=== PATIENT | female | born 1950 | race Caucasian/White ===

== ENCOUNTER 2020-02-06 16:47 | Emergency (ER) | payer MEDICARE, SELFPAY ==
[2020-02-06 16:56] VITALS: BP 140/95; PULSE 92; RESP 18; TEMP 36.8; O2SAT 100
--- NOTE | 2020-02-06 18:27 | ED.FEMALEGU ---
HPI - Female Genitourinary General Chief complaint: Urogenital-Female Stated complaint: URINARY RETENTION Time Seen by Provider: 02/06/20 17:53 Source: patient Mode of arrival: ambulatory Limitations: no limitations History of Present Illness HPI Narrative: This is a 69 year old female that presents to the ER for urinary retention. Reports she has not been able to urinate since this morning. Reports only a little came out this morning. She has tried since and has been unable to get any urine out. Reports she sees Dr. Melissa for interstitial cystitis. Denies fever, abdominal pain, vomiting, or dysuria. Related Data Home Medications Medication Instructions Recorded Confirmed pantoprazole 40 mg tablet,delayed 40 mg PO QAM 06/01/19 06/01/19 release rivaroxaban 20 mg tablet 20 mg PO DAILY 06/01/19 06/01/19 sotalol 80 mg tablet 80 mg PO DAILY 06/01/19 06/01/19 Allergies Allergy/AdvReac Type Severity Reaction Status Date / Time steroids AdvReac Intermediate Other Uncoded 02/06/20 17:06 Review of Systems Review of Systems: Narrative: CONSTITUTIONAL: Denies fever GASTROINTESTINAL: Denies abdominal pain, nausea, vomiting GENITOURINARY: Denies dysuria or hematuria. All systems reviewed & are unremarkable except as noted in HPI and below PMFSH Past Medical History Medical History (Updated 02/06/20 @ 20:48 by Parris Bhatia PA-C) Accelerated hypertension Anxiety and depression Gastroesophageal reflux disease History of atrial fibrillation Hypothyroidism (acquired) Interstitial cystitis Surgical History Surgical History History of knee surgery Social History Social History Smoking status: Never smoker Alcohol intake: never Gender identity (if verbalized by the patient): Female Exam Narrative: Exam Narrative: GENERAL: Well-appearing, well-nourished, and in no acute distress. HEAD: Normocephalic, atraumatic. EYES: EOMI. CHEST: Clear to auscultation. No respiratory distress. No wheezes rales or rhonchi HEART: Regular rate and rhythm. No murmur heard. Normal peripheral pulses. ABDOMEN: Soft, nontender, nondistended, normal active bowel sounds. EXTREMITIES: Normal range of motion. No edema. SKIN: Warm, dry, no rash. NEURO: No focal deficits. Alert and oriented x3. PSYCH: Normal mood and affect Course Vital Signs Vital signs: Vital Signs Temperature 98.3 F 02/06/20 16:56 Pulse Rate 92 02/06/20 16:56 Respiratory Rate 18 02/06/20 16:56 Blood Pressure 140/95 H 02/06/20 16:56 Pulse Oximetry 100 02/06/20 16:56 Temperature 98.3 F 02/06/20 16:56 Pulse Rate 92 02/06/20 16:56 Respiratory Rate 18 02/06/20 16:56 Blood Pressure 140/95 H 02/06/20 16:56 Pulse Oximetry 100 02/06/20 16:56 MDM - Female Genitourinary MDM Narrative Medical decision making narrative: Patient presents the emergency department for urinary retention. Reports she went to the restroom this morning, but was unable to the rest of the day. Reports she felt like she was hydrating. Denied any dysuria or hematuria. Patient is afebrile and nontoxic-appearing. CBC is without leukocytosis. Metabolic panel with possible very mild dehydration. Patient given a liter of IV fluids in the ED. UA is without evidence of infection. Bladder scan with only 60 to 70 mL's. After patient was hydrated she was able to urinate on her own. Patient is stable and felt appropriate for further outpatient evaluation. She was instructed to drink plenty of water at home. She is to follow-up with her urologist as needed. She was given warnings to return to the ER Lab Data Attestation: I reviewed the patient's lab results. Result diagrams: 02/06/20 18:48 02/06/20 18:48 Labs: Lab Results 02/06/20 02/06/20 02/06/20 Range/Units 18:48 18:48 18:48 WBC 8.8 (4.5-10.0) K/mm3 RBC 4.92
[2020-02-06 18:57] LABS: Basophils Percent Auto 0.3 % (0.2-1.2); Eosinophils Absolute Auto 0.3 K/mm3 (0-0.3); Eosinophils Percent Auto 3.5 % (0-4.4); Hematocrit 42.8 % (37.0-47.0); Hemoglobin 14.4 g/dL (12.0-15.0); Immature Granulocyte Absolute 0.03 K/mm3 (0.00-0.031); Immature Granulocyte Percent A 0.3 % (0-0.5); Lymphocytes Absolute Auto 3.02 K/mm3 (0.9-3.2); Lymphocytes Percent Auto 34.2 % (18.3-44.2); Mean Corpuscular HGB Conc 33.6 g/dl (32-36); Mean Corpuscular Hemoglobin 29.3 pg (26-34); Mean Platelet Volume 10.2 fl (7.4-10.4); Monocytes Absolute Auto 0.6 K/mm3 (0.1-0.6); Monocytes Percent Auto 6.3 % (2.6-8.5); Neutrophils Absolute Auto 4.9 K/mm3 (1.3-6.7); Neutrophils Percent Auto 55.4 % (45.5-73.1); Platelet Count Result 253 k/mm3 (150-375); Red Blood Count 4.92 M/mm3 (4.2-5.4); Red Cell Distribution Width 13.5 % (11.5-14.5); White Blood Count 8.8 K/mm3 (4.5-10.0)
[2020-02-06 19:04] LABS: Add Urine Microscopic? YES; Appearance Urine Cloudy (Clear); Bilirubin Urine Negative (Negative); Blood Urine 1+ (Negative); Color Urine Yellow (Yellow); Glucose Urine UA Negative (Negative); Hyaline Casts Urine 15-19 /lpf; Ketones Urine Negative (Negative); Leukocyte Esterase Ur Negative LEU/UL (Negative); Mucus Urine Heavy /lpf; Nitrate Urine Negative (Negative); Protein Urine 1+ mg/dL (Negative); RBC Urine 0-2 /hpf (0-2); Specific Grav Ur 1.019 (1.001-1.035); Squamous Epithelial Cell Urine Few /hpf (Few); Urobilinogen Urine Negative mg/dL (<2.0); WBC Urine 0-3 /hpf
[2020-02-06 19:09] LABS: Anion Gap 8 mmol/L (8-16); Blood Urea Nitrogen 18 mg/dL (7-17); Calcium 8.8 mg/dL (8.4-10.2); Carbon Dioxide 28 mmol/L (22-30); Chloride 100 mmol/L (98-107); Estimated Glomerular Filt Rate > 60; Glucose 98 mg/dL (65-105); Potassium 3.5 mmol/L (3.4-5.0); Sodium 136 mmol/L (137-145)
[2020-02-06 19:22] VITALS: BP 131/73; PULSE 91; RESP 16; O2SAT 99
[2020-02-06] MEDS: SODIUM CHLORIDE 0.9% IV 1,000 ML 999 ML IV CONT (19:32)
[2020-02-06 21:02] VITALS: BP 145/84; PULSE 79; RESP 16; TEMP 36.6; O2SAT 100
== END 2020-02-06 21:03 | disposition home or self-care (01) ==
PROVIDERS: Physician Assistant; Emergency Provider Emergency Medicine; PCP Internal Medicine
DX: E86.0 Dehydration (principal); I10 Essential (primary) hypertension; F41.9 Anxiety disorder, unspecified; F32.9 Major depressive disorder, single episode, unspecified; K21.9 Gastro-esophageal reflux disease without esophagitis; I48.91 Unspecified atrial fibrillation; Z79.01 Long term (current) use of anticoagulants; E03.9 Hypothyroidism, unspecified
CPT/HCPCS: 36415; 51701; 80048; 81001; 85025; 96360; 99283; J7030

== ENCOUNTER 2020-04-11 10:02 | Outpatient (CLI) | payer MEDICARE, SELFPAY ==
--- NOTE | ~2020-04-11 | MM_ITS ---
EXAMINATION: MM screening [facility] BI w alfredo HISTORY: Screening mammogram TECHNIQUE: Craniocaudal and mediolateral oblique 3-D tomosynthesis images were obtained and synthetic 2-D images were generated. CAD analysis was submitted and interpreted. COMPARISON: 04/01/2019, 03/30/2018, 03/23/2017 BREAST PARENCHYMAL COMPOSITION: There are scattered areas of fibroglandular density. FINDINGS: There is no evidence of suspicious mass, calcification, or architectural distortion to sugg est malignancy in either breast. There has been no suspicious interval change. IMPRESSION: 1. No mammographic evidence of malignancy. 2. Recommend routine screening mammography in one year. BI-RADS Category 1: Negative Reviewed, dictated and finalized at location A.
== END 2020-04-11 10:03 | disposition home or self-care (01) ==
LOC: ANHIMG 10:04
PROVIDERS: PCP Internal Medicine; Visit Provider Internal Medicine
DX: Z12.31 Encounter for screening mammogram for malignant neoplasm of breast (principal)
CPT/HCPCS: 77063; 77067

== ENCOUNTER → 2021-01-08 08:17 | Outpatient (CLI) | payer MEDICARE, SELFPAY ==
[2021-01-08 20:36] LABS: SARS-CoV-2 RNA PCR Negative
== END ==
PROVIDERS: PCP Internal Medicine; Visit Provider Internal Medicine
DX: Z20.822 Contact with and (suspected) exposure to COVID-19 (principal); R09.89 Other specified symptoms and signs involving the circulatory and respiratory systems
CPT/HCPCS: C9803; U0003; U0005

== ENCOUNTER 2021-02-26 10:01 | Emergency (ER) | payer MEDICARE, SELFPAY ==
--- NOTE | ~2021-02-26 | XR_ITS ---
EXAMINATION: [id number] EXAM DATE: 02/26/2021 10:24 INDICATION: Right-sided neck pain for 3 days. Painful to lift head. TECHNIQUE: Cervical spine frontal, lateral, lateral swimmers, and open-mouth odontoid projections. There is no prior study for comparison. FINDINGS: Straightening of normal cervical lordosis could be positional or spasm. Mild to moderate d isc disease C6-7, mild at C5-6. The vertebral body and disc heights are otherwise well maintained. Mi ld to moderate cervical arthropathy. There are no acute fractures identified. The odontoid process is intact. The lateral masses of C1 line up with C2. Prevertebral soft tissue and pre-dens space are w ithin normal limits. Lung apices unremarkable. IMPRESSION: 1. Mild to moderate cervical spondylosis. 2. Cervical straightening. Reviewed, dictated and finalized at location B.
[2021-02-26 10:06] VITALS: BP 159/89; PULSE 58; RESP 16; TEMP 36.4; O2SAT 99
--- NOTE | 2021-02-26 10:06 | ED.NECK ---
HPI - Neck Pain/Injury General Chief Complaint: Neck Pain/Injury Stated Complaint: neck pain Time Seen by Provider: 02/26/21 10:06 Source: patient, family and RN notes reviewed History of Present Illness HPI Narrative: Patient is a 70-year-old female who presents the urgent care with complaints of left-sided neck pain. Patient states that started Thursday without any known injury, fall or trauma. Denies any history of neck or back pain. Denies of any headache. Patient states that she is used Aspercreme and Tylenol. No other acute complaints. No acute distress noted. Patient aware of the plan of care. Some parts of this dictation were generated by voice recognition software and may contain typographical and/or grammatical inaccuracies. Related Data Home Medications Medication Instructions Recorded Confirmed pantoprazole 40 mg tablet,delayed 40 mg PO QAM 06/01/19 12/21/20 release rivaroxaban 20 mg tablet 20 mg PO DAILY 06/01/19 12/21/20 sotalol 80 mg tablet 80 mg PO DAILY 06/01/19 12/21/20 Allergies Allergy/AdvReac Type Severity Reaction Status Date / Time steroids AdvReac Intermediate Other Uncoded 12/21/20 11:16 Review of Systems Review of Systems: CONSTITUTIONAL: Denies fever, chills, or sweats. EYES: Denies visual changes, redness, or discharge. ENT: Denies rhinorrhea, congestion, sore throat, or otalgia. Reports of left-sided neck pain CARDIOVASCULAR: Denies chest pain, palpitations, or edema. RESPIRATORY: Denies cough or dyspnea. GASTROINTESTINAL: Denies abdominal pain, nausea, vomiting, or diarrhea. GENITOURINARY: Denies dysuria or hematuria. SKIN: Denies rash or itching. MUSCULOSKELETAL: Denies back pain, joint pain, or myalgia. NEUROLOGIC: Denies headache, numbness, or weakness. All other systems reviewed are negative, except as documented in HPI. [facility] Past Medical History Medical History Accelerated hypertension Anxiety and depression Gastroesophageal reflux disease History of atrial fibrillation Hypothyroidism (acquired) Interstitial cystitis Postmenopausal Surgical History Surgical History History of knee surgery Family History Family History Mother Family history of diabetes mellitus in first degree relative Father Family history of coronary artery disease Other Family history of malignant neoplasm of breast in first degree relative Family history of malignant neoplasm of male breast Social History Social History (Updated 12/21/20 @ 11:18 by Amaris Chung MA) Smoking status: Never smoker Alcohol intake: never Substance use: never Gender identity (if verbalized by the patient): Female Comments At the time of my signature, I reviewed and agree with the nursing past medical, surgical, social, and family history. There is no relevant family history pertinent to the patient complaint. Exam Narrative: GENERAL: This is a well-nourished, well-developed patient, in no apparent distress. HEAD: normocephalic, atraumatic. EYES: PERRL. Sclera clear/white. Vision is grossly intact. EARS: External ears normal NOSE: External nose normal with no obvious nasal discharge, nares without redness, no rhinorrhea. THROAT: Mucous membranes moist NECK: Range of motion limited due to pain especially flexion to the right, no cervical tenderness. Difficulty with head/chin left CARDIOVASCULAR: irregular, murmur (history of Afib and mitral valve prolapse) RESPIRATORY: Clear to auscultation. Breath sounds equal bilaterally. No wheezes, rales, or rhonchi. SKIN: warm, intact with no suspicious lesions or rash, good texture and turgor. NEURO: awake, alert, and oriented to person, place and time. There were no obvious focal neurologic abnormalities. EXTREMITIES: No clubbing, cyanosis, or edema. Course Vital Signs Vital signs:
[2021-02-26 10:10] VITALS: BP 159/89; PULSE 58; RESP 16; TEMP 36.4; O2SAT 99
== END 2021-02-26 10:57 | disposition home or self-care (01) ==
PROVIDERS: Emergency Provider Nurse Practitioner Family; PCP Internal Medicine
DX: S16.1XXA Strain of muscle, fascia and tendon at neck level, initial encounter (principal); I10 Essential (primary) hypertension; F32.9 Major depressive disorder, single episode, unspecified; F41.9 Anxiety disorder, unspecified; X58.XXXA Exposure to other specified factors, initial encounter
CPT/HCPCS: 72040; 99213; G0463

== ENCOUNTER 2021-04-12 14:21 | Outpatient (CLI) | payer MEDICARE, SELFPAY ==
--- NOTE | ~2021-04-12 | MM_ITS ---
EXAMINATION: MM screening [facility] BI w alfredo HISTORY: Screening mammogram TECHNIQUE: Craniocaudal and mediolateral oblique 3-D tomosynthesis images were obtained and synthetic 2-D images were generated. CAD analysis was submitted and interpreted. COMPARISON: 04/11/2020, 08/02/2018, 03/30/2018 BREAST PARENCHYMAL COMPOSITION: There are scattered areas of fibroglandular density. FINDINGS: There is no evidence of suspicious mass, calcification, or architectural distortion to sugg est malignancy in either breast. There has been no suspicious interval change. IMPRESSION: 1. No mammographic evidence of malignancy. 2. Recommend routine screening mammography in one year. BI-RADS Category 1: Negative Reviewed, dictated and finalized at location A.
== END 2021-04-12 14:22 | disposition home or self-care (01) ==
LOC: ANHIMG 14:24
PROVIDERS: PCP Internal Medicine; Visit Provider Internal Medicine
DX: Z12.31 Encounter for screening mammogram for malignant neoplasm of breast (principal)
CPT/HCPCS: 77063; 77067

== ENCOUNTER 2022-05-09 12:35 | Outpatient (CLI) | payer MEDICARE, SELFPAY ==
--- NOTE | ~2022-05-09 | MM_ITS ---
EXAMINATION: MM screening [facility] BI w alfredo HISTORY: Screening mammogram TECHNIQUE: Craniocaudal and mediolateral oblique 3-D tomosynthesis images were obtained and synthetic 2-D images were generated. CAD analysis was submitted and interpreted. COMPARISON: 04/12/2021, 04/11/2020, 04/01/2019 bilateral screening mammogram examinations BREAST PARENCHYMAL COMPOSITION: There are scattered areas of fibroglandular density. FINDINGS: There is no evidence of suspicious mass, calcification, or architectural distortion to sugg est malignancy in either breast. There has been no suspicious interval change. IMPRESSION: 1. No mammographic evidence of malignancy. 2. Recommend routine screening mammography in one year. BI-RADS Category 1: Negative Reviewed, dictated and finalized at location A. [employer]
== END 2022-05-09 12:36 | disposition home or self-care (01) ==
PROVIDERS: PCP Internal Medicine; Visit Provider Internal Medicine
DX: Z12.31 Encounter for screening mammogram for malignant neoplasm of breast (principal)
CPT/HCPCS: 77063; 77067

== ENCOUNTER 2023-09-01 09:21 | Outpatient (CLI) | payer MEDICARE, SELFPAY ==
--- NOTE | ~2023-09-01 | DEXA_ITS ---
Bone Density Report Name: FREDERICK HANEY Age: 73 Sex: Female Ethnicity: White Date of : 1950 Indication: postmenopausal; screening for osteoporosis; hysterectomy; Referring Provider: ZHANE CRISTINA Study: Bone densitometry was performed. Exam Date: September 01, 2023 Accession number: [id number] Bone Density: Region BMD T-score Z-score Classification AP Spine(L1-L4) 0.931 -1.1 1.2 Osteopenia Femoral Neck (Left) 0.617 -2.1 -0.2 Osteopenia Total Hip (Left) 0.792 -1.2 0.4 Osteopenia Femoral Neck (Right) 0.630 -2.0 -0.1 Osteopenia Total Hip (Right) 0.757 -1.5 0.1 Osteopenia Total Hip Mean 0.774 -1.4 0.3 Osteopenia World Health Organization criteria for BMD impression classify patients as: Normal (T-score at or above -1.0), Osteopenia (T-score between -1.0 and -2.5), or Osteoporosis (T-score at or below -2.5). 10-year Fracture Risk(1): Major Osteoporotic Fracture 11% Hip Fracture 2.4% Reported Risk Factors: [place] (), Neck BMD=0.617, BMI=36.5 (1) FRAX(R) Version 3.08. Fracture probability calculated for an untreated patient. Fracture probability may be lower if the patient has received treatment. Clinical Information Provided by Patient: Has used the following medications: Vitamin D Has the following medical conditions: Hysterectomy Patient maximum height was 63 Menopause Age: 29 Onset of menses at age 15 Number of children 0 Impression: The patient has low bone mass, based on the Left Femoral Neck T-score. The patient has an estimated ten-year risk of hip fracture of 2.4% and an estimated ten-year risk of major fracture of 11%, based on the WHO FRAX algorithm. Discussion: BONE DENSITY IS LOW AT ONE OR MORE SKELETAL SITES. This patient's lowest T-score is low at one or more skeletal sites. It meets the World Health Organization's (WHO) criteria for ?low bone mass? (T-score between -1.0 and -2.5). The patient's 10-year risk of fracture as calculated by FRAX is less than the threshold where pharmacological therapy is recommended by the National Osteoporosis Foundation (NOF). However, all treatment decisions require clinical judgment and consideration of individual patient factors, including patient preferences, comorbidities, previous drug use, risk factors not captured in the FRAX model (e.g., frailty, falls, vitamin D deficiency, increased bone turnover, interval significant decline in bone density) and possible under or overestimation of fracture risk by FRAX. The patient should follow a healthful lifestyle (good nutrition with adequate calcium and vitamin D, and appropriate weight-bearing exercise). Follow-Up: Consider repeating this study in 2 to 3 years to reassess this patient's status, or sooner if there is some new clinical indication. Reported by: Sabiha
--- NOTE | ~2023-09-01 | MM_ITS ---
EXAMINATION: MM screening [facility] BI w alfredo HISTORY: Screening TECHNIQUE: Craniocaudal and mediolateral oblique 3-D tomosynthesis images were obtained and synthetic 2-D images were generated. CAD analysis was submitted and interpreted. COMPARISON: Comparison to multiple prior studies sequentially, with oldest reviewed study dated 02/2017. BREAST PARENCHYMAL COMPOSITION: Not dense: There are scattered areas of fibroglandular density. FINDINGS: There is no evidence of suspicious mass, calcification, or architectural distortion to sugg est malignancy in either breast. There has been no suspicious interval change. IMPRESSION: 1. No mammographic evidence of malignancy. 2. Recommend routine screening mammography in one year. BI-RADS Category 1: Negative Reviewed, dictated and finalized at location A.
== END 2023-09-01 09:22 | disposition home or self-care (01) ==
PROVIDERS: PCP Physician Assistant; Visit Provider Physician Assistant
DX: Z12.31 Encounter for screening mammogram for malignant neoplasm of breast (principal); M85.89 Other specified disorders of bone density and structure, multiple sites; Z78.0 Asymptomatic menopausal state
CPT/HCPCS: 77063; 77067; 77080

== ENCOUNTER 2023-10-02 14:13 | Outpatient (CLI) | payer MEDICARE, SELFPAY ==
--- NOTE | ~2023-10-02 | XR_ITS ---
EXAMINATION: XR hand RT min 3V, XR wrist RT min 3V DATE: 10/02/2023 14:34 INDICATION: Right hand and wrist pain TECHNIQUE: 1. Posteroanterior, ulnar deviation, oblique, and lateral views of the right wrist were obtained. 2. Dorsal palmar, oblique and lateral views of the right hand were obtained. COMPARISON: None. FINDINGS: Alignment of the right hand and wrist is normal. No fracture identified. Polyarticular osteoarthriti s, moderate severity at the triscaphe, first carpometacarpal, first metacarpophalangeal and first int erphalangeal and second-fourth distal interphalangeal joints and mild at the distal radioulnar, wrist and many of the remaining metacarpophalangeal and interphalangeal joints. No cortical erosions or pe riosteal reaction. No focal soft tissue swelling. IMPRESSION: 1. Typical distribution of mild to moderate polyarticular osteoarthritis at the right hand and wrist most prominent at the medial aspect of the carpus and distal interphalangeal joints. Reviewed, dictated and finalized at location A. IMPRESSION: 1. Typical distribution of mild to moderate polyarticular osteoarthritis at the right hand and wrist most prominent at the medial aspect of the carpus and dis siddhartha interphalangeal joints.
== END 2023-10-02 14:14 | disposition home or self-care (01) ==
LOC: ANHIMG 14:16
PROVIDERS: PCP Internal Medicine; Visit Provider Internal Medicine
DX: M19.041 Primary osteoarthritis, right hand (principal); M19.031 Primary osteoarthritis, right wrist
CPT/HCPCS: 73110; 73130

== ENCOUNTER 2023-11-24 16:29 | Emergency (ER) | payer MEDICARE, SELFPAY ==
--- NOTE | 2023-11-24 16:32 | ED.GENADULT ---
HPI - General Adult General Chief complaint: Back Pain/Injury Stated complaint: R BUTTOCK PAIN Time Seen by Provider: 11/24/23 16:42 Source: patient, RN notes reviewed and old records reviewed Mode of arrival: ambulatory Limitations: no limitations History of Present Illness HPI narrative: 73-year-old female presents to the [facility] with complaints of right buttock pain Patient states it started yesterday morning. Pain worse when she lifts her leg. No injury. No treatment prior to arrival Patient has no rashes, erythema or ecchymosis to the area No midline tenderness No loss retention of bowel or bladder. Denies abdominal pain. No midline tenderness. Walking with a steady gait Treatments prior to arrival: none Related Data Home Medications Medication Instructions Recorded Confirmed rivaroxaban 20 mg tablet (Xarelto) 20 mg PO DAILY 06/01/19 11/24/23 sotalol 120 mg tablet 120 mg PO Q12H 04/21/23 11/24/23 cholecalciferol (vitamin D3) 10 10 mcg PO DAILY 11/24/23 11/24/23 mcg (400 unit) capsule (Vitamin D3) Allergies Allergy/AdvReac Type Severity Reaction Status Date / Time steroids AdvReac Intermediate Other Uncoded 11/24/23 16:49 Review of Systems Review of Systems: All systems reviewed & are unremarkable except as noted in HPI and below Constitutional: Constitutional: Reports no additional constitutional complaints Eyes: Eyes: Reports no additional eye complaints ENT: Reports system reviewed and no additional complaints, except as documented Cardiovascular: Cardiovascular: Reports no additional cardiovascular complaints, Denies chest pain and Denies dyspnea Respiratory: Respiratory: Reports no additional respiratory complaints, Denies chest congestion, Denies cough and Denies dyspnea Gastrointestinal: Gastrointestinal: Reports no additional gastrointestinal complaints, Denies abdominal pain, Denies nausea and Denies vomiting Musculoskeletal: Musculoskeletal: Reports as per HPI Integumentary/Breasts: Skin/Breast: Reports system reviewed and no additional complaints, except as docu Neurologic: Reports system reviewed and no additional complaints, except as documented Psychiatric: Psychiatric: Reports no additional psychiatric complaints Allergic/Immunologic: Allergic/Immunologic: Reports no additional allergic/immunologic complaints [facility] Past Medical History Medical History Accelerated hypertension Anxiety and depression Gastroesophageal reflux disease History of atrial fibrillation Hypothyroidism (acquired) Interstitial cystitis Osteoarthritis Postmenopausal Surgical History Surgical History History of knee surgery Family History Family History Mother Family history of diabetes mellitus in first degree relative Father Family history of coronary artery disease Other Family history of malignant neoplasm of breast in first degree relative Family history of malignant neoplasm of male breast Social History Social History Smoking status: Never smoker Alcohol intake: never Substance use: never Lack of Transportation: No Lack of Food: Never True Current Housing: I Have Housing Concerned About Future Housing: No Difficulty Paying Gas/Electric Bills: No Difficulty Paying for Meds: No Currently Unemployed: No Education: Associate Degree Difficulty w/ Childcare or Family Care: No Gender identity (if verbalized by the patient): Female Comments At the time of my signature, I reviewed and agree with the nursing past medical, surgical, social, and family history. There is no relevant family history pertinent to the patient complaint. Exam Const: General: cooperative, healthy appearing, no acute distress, well developed, alert, uncomfortable and well
[2023-11-24 16:40] VITALS: BP 152/74; PULSE 60; RESP 16; TEMP 36.6; O2SAT 98
== END 2023-11-24 16:57 | disposition home or self-care (01) ==
PROVIDERS: Emergency Provider Nurse Practitioner; PCP Internal Medicine
DX: M54.31 Sciatica, right side (principal); I10 Essential (primary) hypertension; K21.9 Gastro-esophageal reflux disease without esophagitis; I48.91 Unspecified atrial fibrillation; E03.9 Hypothyroidism, unspecified; M19.90 Unspecified osteoarthritis, unspecified site; Z79.01 Long term (current) use of anticoagulants; F41.9 Anxiety disorder, unspecified; F32.A Depression, unspecified
CPT/HCPCS: 99213; G0463

== ENCOUNTER 2024-05-19 12:20 | Emergency (ER) | payer MEDICARE, SELFPAY ==
--- NOTE | ~2024-05-19 | CT_ITS ---
EXAMINATION: CT brain wo con DATE: 05/19/2024 13:41 INDICATION: Dizziness. Nausea and vomiting. TECHNIQUE: Computed tomography (CT) of the head was performed without intravenous contrast. The mA wa s adjusted according to patient size. Iterative reconstruction technique was employed. The dose-lengt h product was 605.33 mGy-cm. COMPARISON: Head CT 06/11/2009 FINDINGS: There are scattered areas of low attenuation in the cerebral white matter, which is within normal limits for the patient's age. There is no intracranial hemorrhage, acute infarction, or abnorm al intracranial mass lesion. The ventricles are normal in size. There is mild mucosal thickening in t he paranasal sinuses. 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 The mastoid air cells are normal. IMPRESSION: 1. Normal aging brain. Reviewed, dictated and finalized at location A. TESTER IMPRESSION: 1. Normal aging brain.
[2024-05-19 12:42] VITALS: BP 143/95; PULSE 75; RESP 16; TEMP 36.4; O2SAT 97
--- NOTE | 2024-05-19 13:02 | ED.DIZZY ---
HPI - Dizziness General Chief Complaint: Dizziness <DIANELYS Conn Last Filed: 05/19/24 13:09> Stated Complaint: nausea/vomiting/dizziness <DIANELYS Conn Last Filed: 05/19/24 13:09> Time Seen by Provider: 05/19/24 13:02 <DIANELYS Conn Last Filed: 05/19/24 13:09> Focused HPI: Patient is a 73 y/o female who presents to the ED with c/o dizziness. Patient was at the eye doctor this morning getting visual testing done prior to her scheduled cataract surgery today. Reports shortly after having her eyes dilated, she began having dizziness/lightheadedness, nausea, diaphoresis, near syncope. EMS was then called to bring patient here. patient is still feeling very dizzy, lightheaded, worse with movement and opening eyes. Also still feeling nauseous. Reported having some dry heaving. Denies headache, focal weakness or numbness, vision changes. GENERAL: Mildly uncomfortable/ill-appearing, obese with BMI of 36.2, and in no acute distress. HEAD: Normocephalic, atraumatic. EYES: Pupils are dilated but still reactive. extraocular movements are intact, but difficult to evaluate for nystagmus d/t patient refusing to keep eyes open. CHEST: Clear to auscultation. ?No respiratory distress. HEART: Regular rate and rhythm.? NEURO: ?Alert and oriented x3. no appreciable focal deficits. Patient screened in triage and initial orders placed.? ?Additional care and disposition to be based upon?diagnostic testing and treatment. <DIANELYS Conn Last Filed: 05/19/24 13:09> Source: patient <DIANELYS Conn Last Filed: 05/19/24 13:09> Mode of arrival: EMS <DIANELYS Conn Last Filed: 05/19/24 13:09> Limitations: no limitations <DIANELYS Conn Last Filed: 05/19/24 13:09> History of Present Illness HPI Narrative: I agree with the HPI as documented in the medical screening exam. The patient also states she underwent repeated exposure to bright light that she believes triggered the symptoms. <Kiko Keene MD - Last Filed: 05/20/24 00:43> Related Data Home Medications: Home Medications Medication Instructions Recorded Confirmed rivaroxaban 20 mg tablet (Xarelto) 20 mg PO DAILY 06/01/19 04/26/24 sotalol 120 mg tablet 120 mg PO Q12H 04/21/23 04/26/24 cholecalciferol (vitamin D3) 10 10 mcg PO DAILY 11/24/23 04/26/24 mcg (400 unit) capsule (Vitamin D3) <Simona Jane PA-C - Last Filed: 05/19/24 13:09> Allergies/Adverse Reactions: Allergies Allergy/AdvReac Type Severity Reaction Status Date / Time steroids AdvReac Intermediate Other Uncoded 04/26/24 08:51 <Simona Jane PA-C - Last Filed: 05/19/24 13:09> Review of Systems Review of Systems: All systems reviewed & are unremarkable except as noted in HPI and below <Kiko Keene MD - Last Filed: 05/20/24 00:43> PMFSH Past Medical History Medical History: Medical History Accelerated hypertension Anxiety and depression Gastroesophageal reflux disease History of atrial fibrillation Hypothyroidism (acquired) Interstitial cystitis Osteoarthritis Postmenopausal <Simona Jane PA-C - Last Filed: 05/19/24 13:09> Surgical History Surgical History: Surgical History History of knee surgery <Simona Jane PA-C - Last Filed: 05/19/24 13:09> Family History Family History: Family History Mother Family history of diabetes mellitus in first degree relative Father Family history of coronary artery disease Other Family history of malignant neoplasm of breast in first degree relative Family history of malignant neoplasm of male breast <Simona Jane PA-C - Last Filed: 05/19/24 13:09> Social History Social History: Social History Smoking status: Never smoker Alcohol intake: never Substance use: never Lack of Transportation: No Lack of Food: Never True Current Housing: I Have Housing Concerned About Future Housing: No Difficulty Paying Gas/Electric Bills: No Difficulty Paying for Meds: No Currently Unemployed: No Education: Associate Degree Difficulty w/ Childcare or Family Care: No Gender identity (if verbalized by the patient): Female <Simona Jane PA-C - Last Filed: 05/19/24 13:09> Exam Narrative: GENERAL: Well-developed, well-nourished, and in no acute distress. HEAD: Normocephalic, atraumatic. EYES: PERRLA and EOMI. ENT: Nares clear, no rhinorrhea or epistaxis. Mucous membranes moist. Oropharynx without tonsillar hypertrophy exudate or other lesions. Bilateral TMs pearly roman nonbulging CHEST: Clear to auscultation. No respiratory distress. No wheezes rales or rhonchi HEART: Regular rate and rhythm. No murmur heard. Normal peripheral pulses. ABDOMEN: Soft, nontender, nondistended, normal active bowel sounds. EXTREMITIES: Normal range of motion. No edema. SKIN: Warm, dry, no rash. NEURO: Alert and oriented x3. strength 5/5 in all extremities, sensation intact bilaterally, no noted ataxia, no noted nystagmus, cranial nerves 2-12 intact PSYCH: Normal mood and affect. <Kiko Keene MD - Last Filed: 05/20/24 00:43> Course Course Emergency Course: 19:30 - CBC unremarkable. Chemistries demonstrate mild hypokalemia with potassium of 3.1. CT of the head not concerning for acute intracranial process. The patient's initial EKG demonstrated T-wave inversions without prior EKGs for comparison. On my evaluation, the patient states she feels great and wishes to be discharged. I discussed the risks versus benefits of admission for observation given an episode of near-syncope. The patient voiced understanding and gratitude though politely declines. She has recently followed up with her weather strip installer with no significant findings or change in plan. She accepted a repeat EKG that appears unchanged compared to initial presentation. Will discharge with recommendation for primary care and cardiology follow-up. I discussed the findings and recommendations with The patient. Discussed return and emergency precautions including signs/symptoms of ACS and respiratory distress. The patient voiced understanding and agreement with the plan. All questions answered to her satisfaction. <Kiko Keene MD - Last Filed: 05/20/24 00:43> Vital Signs Vital signs: Vital Signs Temperature 97.6 F 05/19/24 12:42 Pulse Rate 75 05/19/24 12:42 Respiratory Rate 16 05/19/24 12:42 Blood Pressure 143/95 H 05/19/24 12:42 Pulse Oximetry 97 05/19/24 12:42 Oxygen Delivery Room Air 05/19/24 12:42 Temperature 97.6 F 05/19/24 12:42 Pulse Rate 91 05/19/24 19:16 Respiratory Rate 14 05/19/24 19:16 Blood Pressure 146/95 H 05/19/24 19:00 Pulse Oximetry 99 05/19/24 19:01 Oxygen Delivery Room Air 05/19/24 12:42 <Simona Jane PA-C - Last Filed: 05/19/24 13:09> Vital Signs Temperature 97.6 F 05/19/24 12:42 Pulse Rate 75 05/19/24 12:42 Respiratory Rate 16 05/19/24 12:42 Blood Pressure 143/95 H 05/19/24 12:42 Pulse Oximetry 97 05/19/24 12:42 Oxygen Delivery Room Air 05/19/24 12:42 Temperature 97.6 F 05/19/24 12:42 Pulse Rate 91 05/19/24 19:16 Respiratory Rate 14 05/19/24 19:16 Blood Pressure 146/95 H 05/19/24 19:00 Pulse Oximetry 99 05/19/24 19:01 Oxygen Delivery Room Air 05/19/24 12:42 <Kiko Keene MD - Last Filed: 05/20/24 00:43> MDM - Dizziness MDM Narrative Medical decision making narrative: MSE by ROE in triage. <Simona Jane PA-C - Last Filed: 05/19/24 13:09> MSE by ROE in triage. plan: Labs, EKG, imaging, reassess <Kiko Keene MD - Last Filed: 05/20/24 00:43> Differential Diagnosis Differential diagnosis: Likely other ( anemia, hypoglycemia, metabolic abnormality, arrhythmia, intracranial mass, intracranial hemorrhage, dehydration, other) <Kiko Keene MD - Last Filed: 05/20/24 00:43> Lab Data Result diagrams: 05/19/24 13:30 05/19/24 13:30 <Simona Jane PA-C - Last Filed: 05/19/24 13:09> Labs: Lab Results 05/19/24 05/19/24 Range/Units 13:30 13:33 WBC 8.6 (4.5-10.0) K/mm3 RBC 5.02 (4.2-5.4) M/mm3 Hgb 14.8 (12.0-15.0) g/dL Hct 44.7 (37.0-47.0) % MCV 89.0 (80-100) fl MCH 29.5 (26-34) pg MCHC 33.1 (32-36) g/dl RDW 13.6 (11.5-14.5) % Plt Count 216 (150-375) k/mm3 MPV 9.7 (7.4-10.4) fl Immature Gran % (Auto) 0.5 (0-0.5) % Neut % (Auto) 71.9 (45.5-73.1) % Lymph % (Auto) 20.2 (18.3-44.2) % [place] % (Auto) 5.1 (2.6-8.5) % Eos % (Auto) 2.1 (0-4.4) % Baso % (Auto) 0.2 (0.2-1.2) % Lymph # (Auto) 1.73 (0.9-3.2) K/mm3 [place] # (Auto) 0.4 (0.1-0.6) K/mm3 Eos # (Auto) 0.2 (0-0.3) K/mm3 Baso # (Auto) 0.0 (0.0-0.1) K/mm3 Abs Immat Gran (auto) 0.04 H (0.00-0.031) K/mm3 Absolute Neuts (auto) 6.2 (1.3-6.7) K/mm3 Absolute Nucleated RBC 0.000 (0.0-0.012) K/mm3 Nucleated RBC % 0.0 (0.0-0.2) % Sodium 139 (137-145) mmol/L Potassium 3.1 L (3.4-5.0) mmol/L Chloride 104 (98-107) mmol/L Carbon Dioxide 30 (22-30) mmol/L Anion Gap 5 (4-12) mmol/L BUN 9 D (7-17) mg/dL Creatinine 0.60 L (0.7-1.0) mg/dL Estim Creat Clear Calc 78 ml/min Estimated GFR > 60 (59 - ) Glucose 126 H (65-110) mg/dL POC Capillary Glucose 124 H (65-105) mg/dl Calcium 8.6 (8.4-10.2) mg/dL Magnesium 2.1 (1.6-2.3) mg/dL Total Bilirubin 0.9 (0.2-1.3) mg/dL AST 27 (14-36) U/L ALT 18 (6-35) U/L Alkaline Phosphatase 105 (38-126) U/L Total Protein 7.0 (6.3-8.2) g/dL Albumin 4.3 (3.5-5.1) g/dL <Simona Jane PA-C - Last Filed: 05/19/24 13:09> Lab Results 05/19/24 05/19/24 Range/Units 13:30 13:33 WBC 8.6 (4.5-10.0) K/mm3 RBC 5.02 (4.2-5.4) M/mm3 Hgb 14.8 (12.0-15.0) g/dL Hct 44.7 (37.0-47.0) % MCV 89.0 (80-100) fl MCH 29.5 (26-34) pg MCHC 33.1 (32-36) g/dl RDW 13.6 (11.5-14.5) % Plt Count 216 (150-375) k/mm3 MPV 9.7 (7.4-10.4) fl Immature Gran % (Auto) 0.5 (0-0.5) % Neut % (Auto) 71.9 (45.5-73.1) % Lymph % (Auto) 20.2 (18.3-44.2) % [place] % (Auto) 5.1 (2.6-8.5) % Eos % (Auto) 2.1 (0-4.4) % Baso % (Auto) 0.2 (0.2-1.2) % Lymph # (Auto) 1.73 (0.9-3.2) K/mm3 [place] # (Auto) 0.4 (0.1-0.6) K/mm3 Eos # (Auto) 0.2 (0-0.3) K/mm3 Baso # (Auto) 0.0 (0.0-0.1) K/mm3 Abs Immat Gran (auto) 0.04 H (0.00-0.031) K/mm3 Absolute Neuts (auto) 6.2 (1.3-6.7) K/mm3 Absolute Nucleated RBC 0.000 (0.0-0.012) K/mm3 Nucleated RBC % 0.0 (0.0-0.2) % Sodium 139 (137-145) mmol/L Potassium 3.1 L (3.4-5.0) mmol/L Chloride 104 (98-107) mmol/L Carbon Dioxide 30 (22-30) mmol/L Anion Gap 5 (4-12) mmol/L BUN 9 D (7-17) mg/dL Creatinine 0.60 L (0.7-1.0) mg/dL Estim Creat Clear Calc 78 ml/min Estimated GFR > 60 (59 - ) Glucose 126 H (65-110) mg/dL POC Capillary Glucose 124 H (65-105) mg/dl Calcium 8.6 (8.4-10.2) mg/dL Magnesium 2.1 (1.6-2.3) mg/dL Total Bilirubin 0.9 (0.2-1.3) mg/dL AST 27 (14-36) U/L ALT 18 (6-35) U/L Alkaline Phosphatase 105 (38-126) U/L Total Protein 7.0 (6.3-8.2) g/dL Albumin 4.3 (3.5-5.1) g/dL <Kiko Keene MD - Last Filed: 05/20/24 00:43> ECG Data EKG #1: Attestation: I personally reviewed and interpreted this ECG as follows: <Kiko Keene MD - Last Filed: 05/20/24 00:43> ECG completion date: 05/19/24 <Kiko Keene MD - Last Filed: 05/20/24 00:43> ECG completion time: 13:31 <Kiko Keene MD - Last Filed: 05/20/24 00:43> Prior ECG tracings: available for review <Kiko Keene MD - Last Filed: 05/20/24 00:43> Interpretation: AFib, rate 85, normal axis, no ST segment elevations concerning for ischemia, T-wave inversions in lead lead 1, lead 2, V4, V5 and V6. Otherwise normal intervals with QTC of 465. The patient's last available EKG is from 2009 that demonstrated sinus rhythm. <Kiko Keene MD - Last Filed: 05/20/24 00:43> EKG #2: Attestation: I personally reviewed and interpreted this ECG as follows: <Kiko Keene MD - Last Filed: 05/20/24 00:43> ECG completion date: 05/19/24 <Kiko Keene MD - Last Filed: 05/20/24 00:43> ECG completion time: 19:23 <Kiko Keene MD - Last Filed: 05/20/24 00:43> Prior ECG tracings: available for review <Kiko Keene MD - Last Filed: 05/20/24 00:43> Interpretation: AFib, rate 89, normal axis, no ST segment elevations concerning for ischemia, T-wave inversions in lead 1, lead 2, V4, V5 and V6, otherwise normal intervals with QTC of 468. Compared to EKG done at 13:31 today, there are no significant changes. <Kiko Keene MD - Last Filed: 05/20/24 00:43> Discharge Plan Discharge Clinical Impression: Near syncope, A-fib <Simona Jane PA-C - Last Filed: 05/19/24 13:09> Patient Disposition: Home, Self-Care <Simona Jane PA-C - Last Filed: 05/19/24 13:09> Condition: Stable <Simona Jane PA-C - Last Filed: 05/19/24 13:09> Instructions: Antibiotic Form, Lightheadedness (ED) <Simona Jane PA-C - Last Filed: 05/19/24 13:09> Additional Instructions: You were seen in the emergency department. your EKGs are unchanged in show AFib. A CT scan of the head was not concerning for mass, bleeding or changes concerning for stroke. Your right blood cell white blood cell counts are within normal limits. Your liver and kidney function tests demonstrate slightly diminished potassium but is otherwise unremarkable. I recommend following up with your primary care doctor. If you develop chest pain, shortness of breath, loss of consciousness, weakness/numbness, or if you have other emergent concerns for life, limb, or eyesight, return to the emergency department. <Simona Jane PA-C - Last Filed: 05/19/24 13:09> Patient Language: Azeri <Simona Jane PA-C - Last Filed: 05/19/24 13:09> Prescriptions: No Action cholecalciferol (vitamin D3) [Vitamin D3] 10 mcg (400 unit) Capsule 10 mcg PO DAILY baclofen 10 mg tablet See Rx Instructions .Route .COMPLEX PRN (Reason: muscle pain) Qty: 5 0RF Rx Instructions: 0.5 tab bid prn pain Xarelto 20 mg tablet 20 mg PO DAILY sotalol 120 mg tablet 120 mg PO Q12H pantoprazole 40 mg tablet,delayed release (DR/EC) See Rx Instructions .ROUTE .COMPLEX Qty: 90 3RF Dose Instruction: TAKE 1 TABLET BY MOUTH EVERY DAY IN THE MORNING Rx Instructions: TAKE 1 TABLET BY MOUTH EVERY DAY IN THE MORNING metoclopramide HCl 10 mg tablet 10 mg PO BID Qty: 180 3RF Rx Instructions: 30 Minutes before meals ibandronate 150 mg tablet 150 mg PO MONTHLY Qty: 3 3RF diclofenac sodium 1 % gel 2 g topical QID Qty: 100 0RF Rx Instructions: apply to affected area levothyroxine 75 mcg tablet See Rx Instructions .ROUTE .COMPLEX Qty: 90 3RF Dose Instruction: TAKE ONE TABLET BY MOUTH ONCE DAILY Rx Instructions: TAKE ONE TABLET BY MOUTH ONCE DAILY fludrocortisone 0.1 mg tablet See Rx Instructions .ROUTE .COMPLEX Qty: 90 2RF Dose Instruction: TAKE ONE TABLET BY MOUTH ONCE DAILY Rx Instructions: TAKE ONE TABLET BY MOUTH ONCE DAILY citalopram [Celexa] 20 mg tablet 20 mg PO DAILY Qty: 90 3RF amlodipine 5 mg tablet 5 mg PO DAILY Qty: 90 2RF <Simona Jane PA-C - Last Filed: 05/19/24 13:09> Follow-up/Referrals: Uday Barajas DO [Primary Care Provider] - 3 Days <Simona Jane PA-C - Last Filed: 05/19/24 13:09> Time of Disposition: 19:33 <Simona Jane PA-C - Last Filed: 05/19/24 13:09> 19:33 <Kiko Keene MD - Last Filed: 05/20/24 00:43>
--- NOTE | 2024-05-19 13:05 | ECG_ITS ---
Test Date: 2024-05-19 13:31:30 Measurements Intervals [place] Rate: 85 P: 0 MA: 0 QRS: 3 QRSD: 86 T: -36 QT: 389 QTc: 465 Interpretive Statements ATRIAL FIBRILLATION ST DEVIATION AND MODERATE T-WAVE ABNORMALITY, CONSIDER LATERAL ISCHEMIA [-0.1+ mV T-WAVE IN I/aVL/V5/V6] No previous ECG available for comparison Electronically Signed On 05-19-2024 13:58:52 CODING FILE CLERK by Niko Barger M.D.
[2024-05-19] MEDS: MECLIZINE HCL 25 MG TABLET PO (13:25)
[2024-05-19] MEDS: ONDANSETRON INJ 4 MG/2 ML VIAL IV PUSH (13:26)
[2024-05-19 13:38] LABS: Basophils Percent Auto 0.2 % (0.2-1.2); Eosinophils Absolute Auto 0.2 K/mm3 (0-0.3); Eosinophils Percent Auto 2.1 % (0-4.4); Hematocrit 44.7 % (37.0-47.0); Hemoglobin 14.8 g/dL (12.0-15.0); Immature Granulocyte Absolute 0.04 K/mm3 (0.00-0.031); Immature Granulocyte Percent A 0.5 % (0-0.5); Lymphocytes Absolute Auto 1.73 K/mm3 (0.9-3.2); Lymphocytes Percent Auto 20.2 % (18.3-44.2); Mean Corpuscular HGB Conc 33.1 g/dl (32-36); Mean Corpuscular Hemoglobin 29.5 pg (26-34); Mean Platelet Volume 9.7 fl (7.4-10.4); Monocytes Absolute Auto 0.4 K/mm3 (0.1-0.6); Monocytes Percent Auto 5.1 % (2.6-8.5); Neutrophils Absolute Auto 6.2 K/mm3 (1.3-6.7); Neutrophils Percent Auto 71.9 % (45.5-73.1); Platelet Count Result 216 k/mm3 (150-375); Red Blood Count 5.02 M/mm3 (4.2-5.4); Red Cell Distribution Width 13.6 % (11.5-14.5); White Blood Count 8.6 K/mm3 (4.5-10.0)
[2024-05-19 13:38] LABS: Glucose Point of Care 124 mg/dl (65-105)
[2024-05-19 13:52] LABS: Alanine Aminotransferase 18 U/L (6-35); Albumin Level 4.3 g/dL (3.5-5.1); Alkaline Phosphatase 105 U/L (38-126); Anion Gap 5 mmol/L (4-12); Aspartate Amino Transferase 27 U/L (14-36); Bilirubin,Total 0.9 mg/dL (0.2-1.3); Blood Urea Nitrogen 9 mg/dL (7-17); Calcium 8.6 mg/dL (8.4-10.2); Carbon Dioxide 30 mmol/L (22-30); Chloride 104 mmol/L (98-107); Estimated CRCL calculation 78 ml/min; Estimated Glomerular Filt Rate > 60; Glucose 126 mg/dL (65-110); Magnesium 2.1 mg/dL (1.6-2.3); Potassium 3.1 mmol/L (3.4-5.0); Sodium 139 mmol/L (137-145)
[2024-05-19 17:49] VITALS: BP 149/107; RESP 20; O2SAT 97
[2024-05-19 17:54] VITALS: PULSE 96; RESP 14; O2SAT 99
[2024-05-19 19:00] VITALS: BP 146/95; PULSE 85; RESP 14
[2024-05-19 19:01] VITALS: PULSE 87; RESP 14; O2SAT 99
--- NOTE | 2024-05-19 19:12 | ECG_ITS ---
Test Date: 2024-05-19 19:23:19 Measurements Intervals [place] Rate: 89 P: 0 FL: 0 QRS: 9 QRSD: 94 T: -38 QT: 384 QTc: 468 Interpretive Statements ATRIAL FIBRILLATION ST DEVIATION AND MODERATE T-WAVE ABNORMALITY, CONSIDER LATERAL ISCHEMIA [-0.1+ mV T-WAVE IN I/aVL/V5/V6] ST DEVIATION AND MODERATE T-WAVE ABNORMALITY, CONSIDER INFERIOR ISCHEMIA [-0.1+ mV T-WAVE IN II/aVF] Compared to ECG 05/19/2024 13:31:30 No significant changes Electronically Signed On 05-20-2024 12:29:05 BEADWORKER by Barrera Stringer M.D.
[2024-05-19 19:16] VITALS: PULSE 91; RESP 14
== END 2024-05-19 20:10 | disposition home or self-care (01) ==
PROVIDERS: Physician Assistant; Emergency Provider Preventive Medicine Aerospace Medicine; PCP Internal Medicine
DX: R55 Syncope and collapse (principal); I48.91 Unspecified atrial fibrillation; I10 Essential (primary) hypertension; F41.8 Other specified anxiety disorders; E03.9 Hypothyroidism, unspecified; Z79.01 Long term (current) use of anticoagulants
CPT/HCPCS: 36415; 70450; 80053; 82948; 83735; 85025; 93005; 99284; A9270; J2405

== ENCOUNTER 2024-09-27 14:36 | Outpatient (CLI) | payer OTHER, SELFPAY ==
--- NOTE | ~2024-09-27 | MM_ITS ---
EXAMINATION: MM screening ross BI w alfredo HISTORY: Screening TECHNIQUE: Craniocaudal and mediolateral oblique 3-D tomosynthesis images were obtained and synthetic 2-D images were generated. CAD analysis was submitted and interpreted. COMPARISON: Comparison to multiple prior studies sequentially, with oldest reviewed study dated 03/15. BREAST PARENCHYMAL COMPOSITION: Not dense: There are scattered areas of fibroglandular density. FINDINGS: There is no evidence of suspicious mass, calcification, or architectural distortion to sugg est malignancy in either breast. There has been no suspicious interval change. IMPRESSION: 1. No mammographic evidence of malignancy. 2. Recommend routine screening mammography in one year. BI-RADS Category 1: Negative Reviewed, dictated and finalized at location B.
--- OUTSIDE RECORDS SUMMARY | 2024-09-27 15:44 | XMS_ITS | Referral Summary ---
Author Organization [facility] [address] Address [address] [place] [address] Care Team Providers Care Composition Weatherboard Applier Name Role Phone Uday Barajas DO Primary Care Provider [phone] Allergies Active Allergy Reactions Criticality Noted Date Comments Other Unknown 12/02/[address] (PROTONIX) 40 mg EC tablet TK 1 T PO QD 2 11/16/2018 Act niru metoclopramide (REGLAN) 10 mg tablet 1 10/05/2018 Active levothyroxine (SYNTHROID, LEVOTHROID) 75 mcg tablet TK 1 T PO Q DAY 0 11/22/2018 Active fludrocortisone 0.1 mg tablet TK 1 T PO QD 1 10/27/2018 Ac tive citalopram (CeleXA) 20 mg tablet TK 1 T PO QD 0 10/05/2018 Active amLODIPine (NORVASC) 5 mg tablet Take 1 tablet (5 mg total) by mouth daily Active ibandronate (BONIVA) 150 mg tablet Take 1 tablet (150 mg total) by mouth every 30 (thirty) days 09/02/2023 Active Xarelto 20 mg tablet TAKE 1 TABLET BY MOUTH EVERY DAY 30 tablet 5 05/17/2024 Active sotaloL (BETAPACE) 80 mg tablet TAKE 1.5 TABLETS (120 MG TOTAL) BY MOUTH 2 TIMES A DAY 270 tablet 1 06/27/2024 Active Active Problems Problem Noted Date Diagnosed Date Shortness of breath 03/10/2023 Epistaxis 03/08/2019 Paroxysmal atrial fibrillation 12/02/2018 Social History Tobacco Use Types Packs/Day Years Used Date Smoking Tobacco: Never Smokeless Tobacco: Never Tobacco Cessation:Counseling Given: Not Answered Alcohol Use Standard Drinks/Week Comments Never 0 (1 standard drink = 0.6 oz pur e alcohol) AUDIT-C Answer Date Recorded Frequency of Alcohol Consumption Never 03/07/2019 Average Number of Drinks Not on file 019 Frequency of Binge Drinking Not on file 02/14 Comments Unknown Sex and Gender Information Value Date Recorded Sex Assigned at Not on file Legal Sex Female 11:52 PM DIRECTOR SOFTWARE DEVELOPMENT Gender Identity Not on file Sexual Orientation Not on file Last Filed Vital Signs Vital Sign Reading Time Taken Comments Blood Pressure 102/68 05/17/2024 8:38 AM DIRECTOR SOFTWARE DEVELOPMENT Pulse 60 05/17/2024 8:38 AM DIRECTOR SOFTWARE DEVELOPMENT Temperature - - Respiratory Rate - - Oxygen Saturation 95% 05/17/2024 8:38 AM DIRECTOR SOFTWARE DEVELOPMENT Inhaled Oxygen Concentration - - Weight 93.8 kg (206 lb 12.8 oz) 05/17/2024 8:38 AM DIRECTOR SOFTWARE DEVELOPMENT Height 162.6 cm (5' 4 ) 05/17/2024 8:38 AM DIRECTOR SOFTWARE DEVELOPMENT Body Mass Index 35.5 05/17/2024 8:38 AM DIRECTOR SOFTWARE DEVELOPMENT Plan of Treatment Not on file Insurance [facility] MEDICARE [facility] Care Teams Composition Weatherboard Applier Relationship Specialty Start Date End Date Uday Barajas DO PCP - General Internal Medicine 11/03/23
--- OUTSIDE RECORDS SUMMARY | 2024-09-27 15:44 | XMS_ITS | Continuity of Care Document ---
Author Organization [facility] Address [address] [place] [address] Phone Care Team Providers Care Farrowing Manager Name Role Phone Yeimi MORALES, Darnell Unavailable Unavailable Advance Directives Directive Yes / No Effective Date File Name No Information Encounters Encounter Description Practice Location Reason(s) For Visit Diagnoses Date Provider Providers Copied on Encounter [facility], [id number] [place] [address] [address], [place], [place], [id number], [place] tel:[phone] [address] Ev[address] AMAYA Professional No Information Sep-0 8-200 2 Yeimi Patrick. [address] [facility] [address], [place], [place], [id number], [place]. tel:[phone] Family History Family Member Type Diagnosis Age At Onset No Information Payers Payer name Insurance type Covered libertarian ID Authoriza tion(s) No Information Social History Type Description Quantity Date Captured Comments Sex Female Smoking Status No Information Chief Complaint And Reason For Visit No Information Reason For Referral Reason For Referral No Information History Of Present Illness Encounter Date Complaint History Of Prese nt Illness No Information Functional Status Date Functional Assessmen t No Information Instructions Date Instruction Additional Infor mation No Information Assessments Type Assessment Date No Information Patient Care Teams Name Effective Dates (start - stop) Status Members No Information
--- OUTSIDE RECORDS SUMMARY | 2024-09-27 15:44 | XMS_ITS | Clinical Summary ---
Author Organization [facility] [address] Address [address] [place] [address] Care Team Providers Care Sebd Teacher Name Role Phone Uday Barajas DO Primary Care Provider [phone] Allergies Active Allergy Reactions Criticality Noted Date [...] 03/10/2023 Epistaxis 03/08/2019 Paroxysmal atrial fibrillation 12/02/2018 Surgical History Surgery Date Site/Laterality Comments KNEE LIGAMENT RECONSTRUCTION 2012, 2013 Medical History Medical History Date Comments Cataract Depression Acid reflux disease Heart disease a fib Family History Medical History Relation Name Comments Heart failure Father Relation Name Status Comments Brother Alive Father (Age 64) CHF, smoke r Mother Alive Social History Tobacco Use Types Packs/Day Years [...] on file Legal Sex Female 11:52 PM B2B APPOINTMENT SETTER Gender Identity Not on file Sexual Orientation Not on file Obstetrics History Last Filed Vital Signs Vital Sign Reading Time Taken Comments Blood Pressure 102/68 05/17/2024 8:38 AM B2B APPOINTMENT SETTER Pulse 60 05/17/2024 8:38 AM B2B APPOINTMENT SETTER Temperature - - Respiratory Rate - - Oxygen Saturation 95% 05/17/2024 8:38 AM B2B APPOINTMENT SETTER Inhaled Oxygen Concentration - - Weight 93.8 kg (206 lb 12.8 oz) 05/17/2024 8:38 AM B2B APPOINTMENT SETTER Height 162.6 cm (5' 4 ) 05/17/2024 8:38 AM B2B APPOINTMENT SETTER Body Mass Index 35.5 05/17/2024 8:38 AM B2B APPOINTMENT SETTER Plan of Treatment Health Maintenance Due Date Last Done Comments Breast Cancer Screening-Mammogram 1951 Colon Cancer Screening-Colonoscopy 1950 Depression Screening 1951 Fall Risk Assessment 1950 Hepatitis C Screening 1951 Osteoporosis Screening-Bone Density Scan 1951 DTaP/Tdap/Td Vaccine (1 - Tdap) 1962 Hepatitis B Screening 1969 Zoster Vaccine (1 of 2) 2001 Well Visit 65+ 2016 Influenza Vaccine (#1) 2024 9, 03/29/2018, 02/23/2017, Additional history exists Pneumococcal vaccine 65+ Completed 04/05/2018, 02/14 Insurance GOLD ADVANTAGE CON AET MEDICARE GOLD GOLD ADVANTAGE CON AETNA MEDICARE GOLD Care Teams Sebd Teacher Relationship Specialty Start Date End Date Uday Barajas DO PCP - General Internal Medicine 11/03/23
--- OUTSIDE RECORDS SUMMARY | 2024-09-27 15:45 | XMS_ITS | Encounter Summary ---
Author Organization [facility] Address [address] [place] [address] Care Team Providers Care Leather Heel Breaster Name Role Phone Unavailable Primary Care Provider Unavailabl e Encounter Details Date Type Department Care Team (Latest Contact Info) Description 09/29/2001 Outpatient Historical [facility] Avel Pantoja MD [address] [place] [address] HEARING LOSS NOS (Primary Dx) Social History Tobacco Use Types Packs/Day Years Used Date Smoking Tobacco: Never Assessed Comments Unknown Sex and Gender Information Value Date Recorded Sex Assigned at Not on file Legal Sex Female 2:56 AM COMPUTATIONAL SCIENTIST Gender Identity Not on file Sexual Orientation Not on file documented as of this encounter Plan of Treatment Not on file documented as of this encounter Visit Diagnoses Diagnosis Unspecified hearing loss- Primary documented in this encounter
--- OUTSIDE RECORDS SUMMARY | 2024-09-27 15:45 | XMS_ITS | Data Portability ---
Author Organization [place] - [facility] OFFICE Address [address] [place] [address] Care Team Providers Care Operational Risk Consultant Name Role Phone ROXY LEI Primary Care Provider Assessment No assessment recorded. Plan of Treatment Reminders Order Date Submit Date Provider Last Modified By Organization Details Last Modified Time Details Appointments None recorded. Lab None recorded. Referral None recorded. Procedures None recorded. Surgeries None recorded. Imaging electrocar diogram 2018 [email or web address] Not available 9 18:40:40 Medication Orders Cardizem CD 240 mg capsule,ex tended release 2018 019 [id number], [address], [place], [id number], 9 18:40:47 Xarelto 20 mg tablet 2018 019 [id number], [address], [place], [id number], 9 18:40:48 Patient TargetsNo targets recorded. Patient Instructions Encounter Date Encounter Id Patient Instructions Last Modified By Organization Details Last Modified Time 09/13/2018 [id number] atrial fibrillation: care instructions [email or web address] Not available 09/13/2018 18:40:40 Reason for Referral None Reported. Results Created Date Observation Date Name Description Value Unit Range Abnormal Flag Note LastModifiedBy Organization Detail LastModifiedTime 09/14/19 19 09/13/2018 elect rocar diogr am Result EKG 09/13/18 atrial fibril lation , NSST change s Not Available Justin Rudloph MD [address], [place], [address], 09/13/2018 18:25:15 08/26/19 19 08/14/2018 US, echoc ardio gram No observ ation record ed. [facility] ([facility]) [address], [place], [address], 08/25/2018 12:33:55 09/14/19 19 US, echoc ardio gram No observ ation record ed. Not Available 2018 11:12:51 09/14/19 19 08/14/2018 elect rocar diogr am No observ ation record ed. [email or web address] Not Available 09/13 17:34:52 09/14/19 19 09/13/2018 elect rocar diogr am No observ ation record ed. [email or web address] Not Available 09/14 11:57:30 09/14/19 19 08/15/2018 US, echoc ardio gram No observ ation record ed. [email or web address] Not Available 2018 11:16:24 09/14/19 19 US, echoc ardio gram No observ ation record ed. [email or web address] Not Available 2018 12:54:26 09/14/19 19 08/14/2018 XR, chest No observ ation record ed. [email or web address] Not Available 2018 12:58:17 Result Notes None recorded. Problems Name Problem SNOMED Code Status Onset Date Resolution Date Notes Provider Name and Address Organization Details Recorded Time Palpitations 54514586 Active 2018 William de guzman [place] - [facility] 9 15:15:13 Mitral valve prolapse 011853818 Active 2018 William de guzman [place] - [facility] 9 15:15:40 Gastroesophage al reflux disease 729673271 Active 2018 William de [place], [place] - [facility] 9 15:15:53 Hypoglycemic syndrome 870391123 Active 2018 William de guz[place] - [facility] 9 15:16:09 Hypothyroidism 73853479 Active 2018 William Sarbjit null, [place] - [facility] 9 15:16:21 Depressive disorder 50044425 Active 2018 Hala Sarbjit [place] - [facility] 9 15:16:31 Endometriosis (clinical) 613972702 Active 2018 H[place] Sar[place]it [place] [facility] 9 15:16:44 Anxiety 81322920 Active 2018 H[place] [facility] 9 15:16:57 Malignant melanoma 571571258 Active 2018 H[place] Sar[place]it [place] [facility] 9 15:17:41 Atrial fibrillation 91020052 Active 2018 Hala Sar[place] - [facility] 9 15:18:28 On examination - epistaxis Active 2018 Hala Sarbjit [place], [place] - [facility] 9 15:18:42 Problem Notes None recorded. Procedures Surgical History None recorded. Imaging Results Imaging Date Name Status LastModified by Organization Details LastModified Time 08/14/2018 US, echocardiogram completed [facility] [address] [place] [address] [address], [place], [address], 08/25/2018 12:33:55 09/13/2018 US, echocardiogram completed [email or web address] Inform ation not available 09/14/2018 11:12:51 08/14/2018 electrocardiogram completed [email or web address] Informa tion not available 09/13/2018 17:34:52 09/13/2018 electrocardiogram completed [email or web address] Informa tion not available 09/14/2018 11:57:30 08/15/2018 US, echocardiogram completed Inform ation not available 09/14/2018 11:16:24 09/13/2018 US, echocardiogram completed [email or web address] Inform ation not available 09/14/2018 12:54:26 08/14/2018 XR, chest completed [email or web address] Information no t available 09/14/2018 12:58:17 Procedure Notes None recorded. Medical Equipment None Reported. Allergies No known drug allergies Medications Name Sig Start Date Stop Date Status Note LastModified by Organization Details LastModified Time carvedilol 6.25 mg tablet 09/13 completed Not Available Not Available Not Available ciprofloxac in 500 mg tablet 09/13 completed Not Available Not Available Not Available peg-electro lyte solution 420 gram oral solution 09/13 completed Not Available Not Available Not Available levothyroxi ne 75 mcg tablet active Not Available Not Available Not Available citalopram 20 mg tablet active Not Available Not Available Not Available Cardizem CD 240 mg capsule,ext ended release Take 1 capsule every day by oral route. 2018 active Not Available Not Available Not Avai lable pantoprazol e 40 mg tablet,emmie yed release active Not Available Not Available Not Available cefuroxime axetil 500 mg tablet 09/13 completed Not Available Not Available Not Available diltiazem 60 mg tablet Take 1 tablet every 6 hours by oral route as directed for 30 days. 09/13 completed Not Available Not Available Not Available fludrocorti sone 0.1 mg tablet active Not Available Not Available Not Available metoclopram bravo 10 mg tablet active Not Available Not Available Not Available Pneumovax-2 3 25 mcg/0.5 mL injection syringe active Not Available Not Available Not Available Asprin Ec Low Dose 81 mg tablet,emmie yed release Take 1 tablet every day by oral route. 09/13 completed Not Available Not Available Not Available nitrofurant oin monohydrate /macrocryst als 100 mg capsule active Not Available Not Available Not Available Xarelto 20 mg tablet Take 1 tablet every day by oral route. 2018 active Not Available Not Available Not Avai lable Fluzone High-Dose 5023-3880 (PF) 180 mcg/0.5 mL intramuscul ar syringe active Not Available Not Available N ot Available Vitals Date Recorded Body height Body mass index (BMI) Body weight Heart rate Oxygen saturation Oxygen saturation in Arterial blood by Pulse oximetry Systolic blood pressure Diastolic blood pressure Provider Name and Address Organization Details Last Updated DateTime 9 162.56 cm 34.3 kg/m2 37631.4 7 g 68 /min 97 % 97 % 122 mm[Hg] 80 mm[Hg] Gem AMAYA - [facility] 9 11:39:48 Social History Question Answer Notes LastModified by Organizat ion Details LastModified Time Tobacco Smoking Status Never Smoker Not Available [employer] 04/17/2020 03:30:42 What Is Your Level Of Alcohol Consumption? None [id number] Information not available 04/17/2020 Which Illicit Or Recreational Drugs Have You Used? Tuan [id number] Information not available 04/17/2020 Marital Status [email or web address] Informatio n not available 09/09/2018 What Was The Date Of Your Most Recent Tobacco Screening? 09/09/2018 [id number] Information not available 04/17/2020 How Many Years Have You Smoked Tobacco? 0 [id number] Information not available 04/17/2020 Sex: Unknown Functional Status None recorded. Mental Status None recorded. Family History Relationship Description Onset Age of this Age Resolved Age Notes LastModified by Organization Details LastModified Time Mother Hypertensive disorder [email or web address] Not available 2018 17:14:46 Father Congestive heart failure hmesto Not available 2018 17:15:02 Father Pulmonary emphysema hmesto Not available 2018 17:15:11 Medical History Condition Response Valvular Heart Disease Y Atrial Fibrillation Y Thyroid Disease Y Depression Y Gynecological HistoryNo gynecological history recorded. Obstetrics History GPAL:G 0 P 0 0 0 0 Past Encounters Encounter ID Performer Location Encounter Start Date Encounter Closed Date Diagnosis/Indication Diagnosis SNOMED-CT Code Diagnosis ICD10 Code Diagnosis Note [id number] Eddie Cruz Office [address] [place] [address] 09/13/2018 10:39:03 09/13/2018 12:26:22 Atrial fibrillation 59417037 I48.91 Discussed diagnosis of {{atrial fibrillati on* atrial flutter}}, including pathophysi ology and prognosis. Discussed importance of controllin g blood pressure, exercising regularly, and minimizing alcohol, caffeine, and decongesta nts. Advised patient to seek medical attention for palpitatio ns, chest pain, dizziness or syncope, shortness of breath, or any other new or concerning symptoms.{ {No need for anticoagul ation at this time. The patient needs anticoagul ation.*}} Patient is to be on {{ warfari n with INR monitored for appropriat e dosing adjustment s, Xarelto, * Eliquis, Savaysa, Pradaxa, }} and for rate control they will need {{no other medication , beta-bloc ker, beta-bloc ker + antiarrhyt hmic, calcium channel amandeep, * calcium channel amandeep + antiarrhyt hmic, antiarrhy thmic, }}{{ digox in, }}and patient was advised to take medication as prescribed . Fall precaution s reviewed. Stroke and bleeding risks reviewed with patient. Health Concerns Section Related Observation LastModified by Organization Detai ls LastModified Time None Recorded Concern Status LastModified by Organization Details LastModified Time None Recorded Advance Directives Directive None Recorded Payers Encounter Date Sequence Insurance Name Policy Number Policy Bourgeois Covered Member ID Bourgeois Member ID Guarantor Name 09/13/2018 1 [facility] (MEDICARE REPLACEMENT HMO) [id number] Chikis Conway [id number] Chikis Conway Notes Date Note Type Note Provider Name and Address Organization Details Recorded Time 09/13/2018 text/html 09/10/18 CC : Palpitation 68 years-old Female with h/o Mitral valve prolapse , Hypertension is here for follow up . She was in the hospital in 08/14/18 because of Atrial fibrillation with rapid ventricular response . pt presents for scheduled fu. She feels fine and denies any symptoms. pt states that had one palpitations before admission, and after.one time BP was high in hospital. now well controlled (120/80) No more Epistaxis. Assessment Atrial fibrillation with RVR . Epistaxis pt was given fludrocortisone [facility] Tilt table 9 yrs vasodepressiove syncopeyear-old man with history of presents for cardiac consultation with a chief complaint of {{No known history of coronary artery disease.* History of coronary artery disease reported.}} {{No history of previous myocardial infarction.* History of previous myocardial infarction reported.}} {{No history of heart failure.* History of heart failure reported.}} {{No known valvular heart disease.* History of valvular heart disease reported.}} {{No known arrhythmia. History of arrhythmia reported.*}} {{Patient reports feeling well overall.* Patient reports not feeling well sometimes.}} {{Patient is active, but is not exercising regularly.* Patient is active, exercising regularly. Patient is not very active, and is not exercising.}} {{No chest pain.* Chest pain reported. Exertional chest pain reported. Non-exertio nal chest pain reported. Chest pain reported which is only sometimes associated with activity.}} {{No arm pain.* Arm pain reported.}} {{No neck pain.* Neck pain reported.}} {{No nausea and vomiting.* Nausea and vomiting reported.}} {{No diaphoresis.* Diaphor esis reported.}} {{No shortness of breath at rest.* Shortness of breath at rest reported.}} {{No dyspnea on exertion.* Dyspnea on exertion reported.}} {{No fatigue.* Fatigue reported.}}{{No orthopnea.* Orthopnea reported.}} {{No PND.* PND reported.}} {{No leg swelling.* Leg swelling reported.}} {{No palpitation.* Palpita tion reported.}} {{No dizziness.* Dizziness reported.}} {{No syncope .* Syncope reported.}} {{No pre-syncope.* Pre-syn cope reported.}} {{No claudication.* Claudi cation reported.}} {{No major bleeding events.* Major bleeding event reported.}} {{No side effects from medications.* Side effects from medications reported.}} {{Complete ROS negative except as stated in the HPI. Complete ROS negative except as stated in the HPI and ROS.*}} Results from this visit, or from the past: EKG 09/13/18 atrial fibrillation, NSST changes 08/14/18 ECHO: Mild concentric left ventricular hypertrophy. Normal left ventricular size. Normal global left ventricular systolic function. There is moderate enlargement of left atrium. Mild mitral annular calcification. Mild mitral valve regurgitation. Eddie Medina [place], [place] - [facility] 09/13/2018 18:40:56 OBGyn Episode No OBEpisode recorded.
--- OUTSIDE RECORDS SUMMARY | 2024-09-27 15:45 | XMS_ITS | Clinical Summary ---
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
== END 2024-09-27 14:37 | disposition home or self-care (01) ==
PROVIDERS: PCP Internal Medicine; Visit Provider Internal Medicine
DX: Z12.31 Encounter for screening mammogram for malignant neoplasm of breast (principal)
CPT/HCPCS: 77063; 77067

== ENCOUNTER 2024-11-22 10:30 | Emergency (ER) | payer OTHER, SELFPAY ==
[2024-11-22 10:34] VITALS: BP 125/97; PULSE 91; RESP 18; TEMP 36.2; O2SAT 100
--- NOTE | 2024-11-22 10:38 | ED_ITS ---
HPI - Back Pain/Injury General Chief Complaint: Back Pain/Injury Stated Complaint: Back Pain Time Seen by Provider: 11/22/24 10:45 Source: patient and RN notes reviewed Mode of arrival: ambulatory Limitations: no limitations History of Present Illness HPI Narrative: 74-year-old female presents with right mid back pain that she has had for 6 days. Reports she clean the house and was doing a lot of extra activity, bending twisting it she normally does not do. Reports the next day she started having this pain. Reports that has not gotten worse but also not gotten better. She denies any decreased strength or sensation in any extremity. She reports exacerbating factors are bending and twisting. She denies tenderness. She denies intervention. She denies loss of bowel or bladder function, perianal anesthesia, fever, abdominal pain. MD elicited complaint: back pain Related Data Home Medications ?Medication ?Instructions ?Recorded ?Confirmed ?Last Taken ?Type rivaroxaban 20 mg tablet (Xarelto) 20 mg PO DAILY 06/01/19 11/08/24 Unknown History sotalol 120 mg tablet 120 mg PO Q12H 04/21/23 11/08/24 Unknown History cholecalciferol (vitamin D3) 10 10 mcg PO DAILY 11/24/23 11/08/24 Unknown History mcg (400 unit) capsule (Vitamin D3) Allergies Allergy/AdvReac Type Severity Reaction Status Date / Time steroids AdvReac Intermediate Other Uncoded 11/08/24 09:17 Review of Systems Review of Systems: CONSTITUTIONAL: Denies malaise, chills, sweats, or fever. CARDIOVASCULAR: Denies chest pain, palpitations, or edema. RESPIRATORY: Denies cough or dyspnea. GASTROINTESTINAL: Denies abdominal pain, nausea, vomiting, diarrhea, loss of bowel function GENITOURINARY: Denies dysuria, hematuria, frequency, loss of bladder function. SKIN: Denies rash or itching. MUSCULOSKELETAL: Reports right mid back pain NEUROLOGIC: Denies numbness, weakness, or headache. All systems reviewed & are unremarkable except as noted in HPI and below PMFSH Past Medical History Medical History Osteoarthritis Postmenopausal Interstitial cystitis History of atrial fibrillation Hypothyroidism (acquired) Accelerated hypertension Anxiety and depression Gastroesophageal reflux disease Surgical History Surgical History History of knee surgery Family History Family History Mother Family history of diabetes mellitus in first degree relative Father Family history of coronary artery disease Other Family history of malignant neoplasm of breast in first degree relative Family history of malignant neoplasm of male breast Social History Social History Smoking status: Never smoker Alcohol intake: never Substance use: never Lack of Transportation: No Lack of Food: Never True Current Housing: I Have Housing Concerned About Future Housing: No Difficulty Paying Gas/Electric Bills: No Difficulty Paying for Meds: No Currently Unemployed: No Education: Associate Degree Difficulty w/ Childcare or Family Care: No Gender identity (if verbalized by the patient): Female Comments At time of signature, agree with nursing past medical, surgical, social and family history. There is no relevant family history pertinent to the presenting complaint Exam Narrative: GENERAL: Well-appearing, well-nourished, and in no acute distress. HEAD: Normocephalic, atraumatic. EYES: PERRLA and EOMI. NECK: Supple. No lymphadenopathy. CHEST: Clear to auscultation. No respiratory distress. HEART: Regular rate and rhythm. Distal pulses palpable and equal, cap refill <3 seconds ABDOMEN: Soft, nontender, nondistended, normal active bowel sounds, no palpable or pulsatile masses. No CVA tenderness MUSCULOSKELETAL: Normal range of motion and strength in all extremities; 5/5 strength with hip flexion and extension, dorsiflexion and extension, knee flexion and extension, plantar flexion and extension. Normal sensation in dermatomal distributions with sensitivity to light touch and pain. No midline back tenderness to palpation. No paraspinal tenderness. Transfers from lying to sitting to standing. SKIN: Warm, dry, no rash. No ecchymosis, erythema, open wounds to back. NEURO: No focal deficits. Alert and oriented x3. Normal gait. PSYCH: Normal mood and affect Course Course Emergency Course: Patient is aware of diagnosis, understands and agrees to treatment plan. Anticipatory guidance given. Patient agrees to follow-up as directed and is aware of reasons to seek care at the emergency department. Portions of this record may have been created with voice recognition software Level of Care: Express Care Visit Vital Signs Vital signs: Reviewed. MDM - Back Pain/Injury MDM Narrative Medical decision making narrative: I evaluated this patient in the express care. History is obtained from patient who is an independent historian and physical exam was performed.? Available medical records were reviewed. ? Exam findings and relevant testing show no acute concerns or changes; patient is non-toxic appearing and is in no distress. ? Differential diagnosis and treatment plan were discussed with the patient. Patient agrees with discussion and after shared medical decision making agrees with plan of care. All questions were answered to the patient's satisfaction. Patient is appropriate for outpatient treatment and follow-up. ECG Data EKG #1: Prior ECG tracings: not available for review Critical Care Time Critical Care Time Critical Care Time: No Discharge Plan Discharge Clinical Impression: Back pain Patient Disposition: Home Condition: Stable Instructions: Back Pain (ED) Additional Instructions: Please follow up with your Primary Care Doctor within 48-72 hours - call for an appointment. Walking and other gentle exercising several times a week has been shown to improve back pain; bed rest is not recommended. Take Motrin 600mg every 6-8 hours with food for the next 2-3 days, take muscle relaxers every 8 hours as needed for muscle spasm- do not drive or make any important decisions while on this medication for it can make you drowsy. You may apply ice to the area as needed. If you experience any worsening pain, swelling, numbness, weakness please go to ER. Contact your doctor or go to the emergency department if you develop problems with bladder or bowel function, weakness or loss of feeling in one or both of your legs, or any other serious concerns. Patient Language: Faroese Prescriptions: New baclofen 10 mg tablet 10 mg PO TID Qty: 20 0RF tramadol 50 mg tablet 50 mg PO Q6H PRN (Reason: pain) Qty: 20 0RF No Action cholecalciferol (vitamin D3) [Vitamin D3] 10 mcg (400 unit) Capsule 10 mcg PO DAILY Xarelto 20 mg tablet 20 mg PO DAILY sotalol 120 mg tablet 120 mg PO Q12H pantoprazole 40 mg tablet,delayed release (DR/EC) See Rx Instructions .ROUTE .COMPLEX Qty: 90 3RF Dose Instruction: TAKE 1 TABLET BY MOUTH EVERY DAY IN THE MORNING Rx Instructions: TAKE 1 TABLET BY MOUTH EVERY DAY IN THE MORNING metoclopramide HCl 10 mg tablet 10 mg PO BID Qty: 180 3RF Rx Instructions: 30 Minutes before meals levothyroxine 75 mcg tablet See Rx Instructions .ROUTE .COMPLEX Qty: 90 3RF Dose Instruction: TAKE ONE TABLET BY MOUTH ONCE DAILY Rx Instructions: TAKE ONE TABLET BY MOUTH ONCE DAILY fludrocortisone 0.1 mg tablet See Rx Instructions .ROUTE .COMPLEX Qty: 90 2RF Dose Instruction: TAKE ONE TABLET BY MOUTH ONCE DAILY Rx Instructions: TAKE ONE TABLET BY MOUTH ONCE DAILY citalopram [Celexa] 20 mg tablet 20 mg PO DAILY Qty: 90 3RF amlodipine 5 mg tablet 5 mg PO DAILY Qty: 90 2RF ibandronate 150 mg tablet 150 mg PO MONTHLY Qty: 3 3RF Follow-up/Referrals: Uday Barajas DO [Primary Care Provider] - Time of Disposition: 10:52
== END 2024-11-22 10:54 | disposition home or self-care (01) ==
PROVIDERS: Emergency Provider Nurse Practitioner; PCP Internal Medicine
DX: M54.6 Pain in thoracic spine (principal); I48.91 Unspecified atrial fibrillation; E03.9 Hypothyroidism, unspecified; I10 Essential (primary) hypertension; K21.9 Gastro-esophageal reflux disease without esophagitis; N30.10 Interstitial cystitis (chronic) without hematuria; M19.90 Unspecified osteoarthritis, unspecified site; F41.9 Anxiety disorder, unspecified; F32.A Depression, unspecified; Z79.01 Long term (current) use of anticoagulants
CPT/HCPCS: 99213; G0463

== ENCOUNTER 2024-11-25 11:50 | Outpatient (CLI) | payer OTHER, SELFPAY ==
--- NOTE | ~2024-11-25 | XR_ITS ---
Thoracic spine: Clinical Indication: Back pain AP and lateral views were performed. No fracture is seen. There is normal alignment of the vertebrae. There is DISH of the thoracic spine . There are mild degenerative disc changes. Paravertebral soft tissues appear normal. Impression: Mild degenerative disc changes. DISH. Reviewed, dictated and finalized at location . Impression: Mild degenerative disc changes. DISH.
--- OUTSIDE RECORDS SUMMARY | 2024-11-25 11:56 | XMS_ITS | Continuity of Care Document ---
Author Organization [facility] Address [address] [place] [address] Phone Care Team Providers Care Case Operator Name Role Phone Yeimi MORALES, Darnell Unavailable Unavailable Advance Directives Directive Yes / No Effective Date File Name No Information Encounters Encounter Description Practice Location Reason(s) For Visit Diagnoses Date Provider Providers Copied on Encounter [facility], [id number] [place] [address] [address], [place], [place], [id number], [place] tel:[phone] AMAYA Professional No Information Sep-0 8-200 2 Yeimi Patrick. [address] [facility] [address], [place], [place], [id number], [place]. tel:[phone] Family History Family Member Type Diagnosis Age At Onset No Information Payers Payer name Insurance type Covered alliance party ID Authoriza tion(s) No Information Social History [...]
--- OUTSIDE RECORDS SUMMARY | 2024-11-25 11:56 | XMS_ITS | Referral Summary ---
Author Organization [facility] [place] [address] Address [address] [place] [address] Care Team Providers Care [employer] History Teacher Name Role Phone Uday Barajas DO Primary Care Provider [phone] Allergies Active Allergy Reactions Criticality Noted Date Comments Other Unknown 12/02/[address] (PROTONIX) 40 mg EC tablet TK 1 T PO QD 2 9 Active metoclopramide (REGLAN) 10 mg tablet 1 9 Active levothyroxine (SYNTHROID, LEVOTHROID) 75 mcg tablet TK 1 T PO Q DAY 0 9 Active fludrocortison e 0.1 mg tablet TK 1 T PO QD 1 9 Active citalopram (CeleXA) 20 mg tablet TK 1 T PO QD 0 9 Active amLODIPine (NORVASC) 5 mg tablet Take 1 tablet (5 mg total) by mouth daily Active ibandronate (BONIVA) 150 mg tablet Take 1 tablet (150 mg total) by mouth every 30 (thirty) days 4 Active sotaloL (BETAPACE) 80 mg tablet TAKE 1.5 TABLETS (120 MG TOTAL) BY MOUTH 2 TIMES A DAY 270 tablet 1 5 Active Xarelto 20 mg tablet TAKE 1 TABLET BY MOUTH EVERY DAY 30 tablet 5 5 Active Xarelto 20 mg tablet TAKE 1 TABLET BY MOUTH EVERY DAY 30 tablet 5 4 11/09/19 25 Discontinued Active Problems Problem Noted Date Diagnosed Date [...] on file Legal 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 Gender Identity Not on file Sexual Orientation Not on file Last Filed Vital Signs Vital Sign Reading Time Taken Comments Blood Pressure 102/68 05/17/2024 8:38 AM DUMP GROUNDS CHECKER Pulse 60 05/17/2024 8:38 AM DUMP GROUNDS CHECKER Temperature - - Respiratory Rate - - Oxygen Saturation 95% 05/17/2024 8:38 AM DUMP GROUNDS CHECKER Inhaled Oxygen Concentration - - Weight 93.8 kg (206 lb 12.8 oz) 05/17/2024 8:38 AM DUMP GROUNDS CHECKER Height 162.6 cm (5' 4) 05/17/2024 8:38 AM DUMP GROUNDS CHECKER Body Mass Index 35.5 05/17/2024 8:38 AM DUMP GROUNDS CHECKER Plan of Treatment Not on file Insurance [facility] AETNA MEDICARE GOLD [facility] AETNA MEDICARE GOLD Care Teams [employer] History Teacher Relationship Specialty Start Date End Date Uday Barajas DO PCP - General Internal Medicine 11/03/23
--- OUTSIDE RECORDS SUMMARY | 2024-11-25 11:56 | XMS_ITS | Clinical Summary ---
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
--- OUTSIDE RECORDS SUMMARY | 2024-11-25 11:56 | XMS_ITS | Clinical Summary ---
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 Gender Identity Not on file Sexual Orientation Not on file Obstetrics History Last Filed Vital Signs Vital Sign Reading Time Taken Comments Blood Pressure 102/68 05/17/2024 8:38 AM BI DATA ARCHITECT Pulse 60 05/17/2024 8:38 AM BI DATA ARCHITECT Temperature - - Respiratory Rate - - Oxygen Saturation 95% 05/17/2024 8:38 AM BI DATA ARCHITECT Inhaled Oxygen Concentration - - Weight 93.8 kg (206 lb 12.8 oz) 05/17/2024 8:38 AM BI DATA ARCHITECT Height 162.6 cm (5' 4) 05/17/2024 8:38 AM BI DATA ARCHITECT Body Mass Index 35.5 05/17/2024 8:38 AM BI DATA ARCHITECT Plan of Treatment Health Maintenance Due Date Last Done Comments Breast Cancer Screening-Mammogram 1951 Colon Cancer Screening-Colonoscopy 1950 Depression Screening 1951 Fall Risk Assessment 1950 Hepatitis C Screening 1950 Osteoporosis Screening-Bone Density Scan 1951 DTaP/Tdap/Td Vaccine (1 - Tdap) 1962 Hepatitis B Screening 1969 Zoster Vaccine (1 of 2) 2001 Well Visit 65+ 2016 Influenza Vaccine (Season Ended) 2025 03/24/2019, 03/29/2018, 02/23/2017, Additional history exists Pneumococcal vaccine 65+ Completed 04/05/2018, 02/14 Insurance [facility] ADVANTAGE CON AETNA MEDICARE GOLD GOLD ADVANTAGE CON AETNA MEDICARE GOLD Care Teams Fur Liner Relationship Specialty Start Date End Date Uday Barajas DO PCP - General Internal Medicine 11/03/23
--- OUTSIDE RECORDS SUMMARY | 2024-11-25 11:56 | XMS_ITS | Encounter Summary ---
Author Organization [facility] Address 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
== END 2024-11-25 11:51 | disposition home or self-care (01) ==
PROVIDERS: PCP Internal Medicine; Visit Provider Internal Medicine
DX: M51.34 Other intervertebral disc degeneration, thoracic region (principal); M48.12 Ankylosing hyperostosis [Forestier], cervical region
CPT/HCPCS: 72072